=== PATIENT | male | born 2000 | race Caucasian/White ===

== ENCOUNTER 2024-01-29 00:50 | Emergency (ER) | payer SELFPAY | END 2024-01-29 01:24 | disposition other institution (70) | LOC: VM.ED 00:50 | DX: Z02.89 Encounter for other administrative examinations (principal); S00.03XA Contusion of scalp, initial encounter; I10 Essential (primary) hypertension; W01.198A Fall on same level from slipping, tripping and stumbling with subsequent striking against other object, initial encounter; Y92.149 Unspecified place in prison as the place of occurrence of the external cause | CPT/HCPCS: 99283; 99284 ==